=== PATIENT | female | born 1970 | race Caucasian/White ===

== ENCOUNTER 2016-07-08 12:50 | Inpatient (IN) | payer OTHER ==
[~2016-07-08] VITALS: Ht 154.9 cm; Wt 102.1 kg
[~2016-07-08 12:50] MED LIST: AMLODIPINE BESY10 M1 PO; ASPIRIN ADULT L81 M3 PO; GLU5 PO; KLONOPIN0.5 MG PO; LIPI10 PO; LOSARTAN POTASS1 TA8 PO; METFORMIN HCL1000 MG PO; TOPROL XL100 MG PO
[2016-07-08 13:56] LABS: BASOPHIL % 0.5 % (0-2); PLATELET COUNT 293 x10^3mcL (130-400); RED CELL DISTRIBUTION WIDTH 12.7 % (11.5-14.5)
[2016-07-08 13:57] LABS: UA SPECIFIC GRAVITY >=1.030 (1.005-1.035); microscopic required? YES; urine erythrocyte NEGATIVE (NEGATIVE)
[2016-07-08 14:38] LABS: T3 TOTAL 1.12 ng/mL
[2016-07-08 15:02] LABS: CALCIUM 8.9 mg/dL (8.5-10.1); CARBON DIOXIDE 24.7 mmol/L (21-32); CHLORIDE SERUM 101 mmol/L (98-107); CREATININE SERUM 0.7 mg/dL (0.6-1.0); GFR1 > 60 mL/min; GLUCOSE SERUM 280 mg/dL (74-106); POTASSIUM SERUM 3.8 mmol/L (3.5-5.1); SODIUM SERUM 136 mmol/L (136-145)
[2016-07-08 15:11] LABS: ALBUMIN 3.7 g/dL (3.4-5.0); ALKALINE PHOSPHATASE 91 U/L (46-116); ALT/SGPT 30 U/L (14-59); AST/SGOT 15 U/L (15-37); BILIRUBIN TOTAL 0.4 mg/dL (0.20-1.00); LIPASE 148 IU/L (73-393); TOTAL PROTEIN, SERUM 7.9 g/dL (6.4-8.2)
[2016-07-08 15:14] LABS: CHOLESTEROL 218 mg/dL (<200); CHOLESTEROL/HDL RATIO 6.8; HDL CHOLESTEROL 32 mg/dL (40-60); TRIGLYCERIDES 586 mg/dL (<150)
[2016-07-08 17:10] LABS: FREE T4 0.89 ng/dL (0.76-1.46); FREE THYROXINE INDEX 2.9 ug/dL (1.4-4.5); T4(THYROXINE) 9.5 ug/dL (4.7-13.3)
[2016-07-08 18:33] VITALS: BP 135/83
[2016-07-08 18:35] VITALS: Ht 154.9 cm; Wt 102.1 kg
[2016-07-08 19:46] LABS: AMPHETAMINE QUAL UR NONE DETECTED (NEG <=1000)
[2016-07-08 21:04] VITALS: BP 132/67
[2016-07-09 06:15] LABS: BASOPHIL % 0.5 % (0-2); PLATELET COUNT 254 x10^3mcL (130-400); RED CELL DISTRIBUTION WIDTH 12.9 % (11.5-14.5)
[2016-07-09 06:26] VITALS: BP 131/71
[2016-07-09 06:48] LABS: CALCIUM 8.3 mg/dL (8.5-10.1); CARBON DIOXIDE 27.1 mmol/L (21-32); CHLORIDE SERUM 102 mmol/L (98-107); CREATININE SERUM 0.5 mg/dL (0.6-1.0); GFR1 > 60 mL/min; GLUCOSE SERUM 158 mg/dL (74-106); MAGNESIUM 1.5 mg/dL (1.8-2.4); PHOSPHOROUS 3.4 mg/dL (2.5-4.9); POTASSIUM SERUM 3.4 mmol/L (3.5-5.1); SODIUM SERUM 139 mmol/L (136-145)
[2016-07-09 09:05] VITALS: BP 130/71
[2016-07-09 13:26] VITALS: BP 112/50
[2016-07-09 21:34] VITALS: BP 138/76
[2016-07-10 05:24] VITALS: BP 125/81
[2016-07-10 06:23] LABS: BASOPHIL % 0.5 % (0-2); PLATELET COUNT 263 x10^3mcL (130-400); RED CELL DISTRIBUTION WIDTH 12.9 % (11.5-14.5)
[2016-07-10 06:56] LABS: CALCIUM 8.4 mg/dL (8.5-10.1); CARBON DIOXIDE 26.5 mmol/L (21-32); CHLORIDE SERUM 102 mmol/L (98-107); CREATININE SERUM 0.5 mg/dL (0.6-1.0); GFR1 > 60 mL/min; GLUCOSE SERUM 198 mg/dL (74-106); MAGNESIUM 1.7 mg/dL (1.8-2.4); POTASSIUM SERUM 3.7 mmol/L (3.5-5.1); SODIUM SERUM 139 mmol/L (136-145)
[2016-07-10 10:36] VITALS: BP 132/76
[2016-07-10] MEDS ORDERED: MOT600 PO (17:06)
[2016-07-10] MEDS ORDERED: ROBAXIN-750750 MG PO (17:08)
[2016-07-10 17:38] VITALS: BP 132/76
[2016-07-10] MEDS ORDERED: NOR10 PO (17:51)
[2016-07-10 17:54] VITALS: BP 144/81
== END 2016-07-10 19:00 | disposition home or self-care (01) | DRG 760 ==
LOC: ED 12:50 → DU 16:28 → MU 07-09 15:31
PROVIDERS: Family Medicine; Specialist; ADMIT Family Medicine
DX: N83.202 Unspecified ovarian cyst, left side (principal); N17.0 Acute kidney failure with tubular necrosis; E78.5 Hyperlipidemia, unspecified; E11.65 Type 2 diabetes mellitus with hyperglycemia; I10 Essential (primary) hypertension; E87.6 Hypokalemia; E83.42 Hypomagnesemia; I16.0 Hypertensive urgency; E78.2 Mixed hyperlipidemia; Z88.8 Allergy status to other drugs, medicaments and biological substances; Z83.3 Family history of diabetes mellitus; Z82.3 Family history of stroke; Z90.49 Acquired absence of other specified parts of digestive tract; Z90.710 Acquired absence of both cervix and uterus
CPT/HCPCS: 72072; 80307; 82962; 83880; 84439; G0480; J1170; J1885; J2405; J2800; J3010; J3475; J7030; Q0092

== ENCOUNTER 2016-09-29 12:10 | Observation (INO) | payer OTHER ==
[~2016-09-29] VITALS: Ht 154.9 cm; Wt 102.0 kg
[~2016-09-29 12:10] MED LIST changes: +MOT600 PO; +NOR10 PO; +ROBAXIN-750750 MG PO
[2016-09-29 14:04] LABS: BASOPHIL % 0.4 % (0-2); PLATELET COUNT 284 x10^3mcL (130-400); RED CELL DISTRIBUTION WIDTH 12.3 % (11.5-14.5)
[2016-09-29 14:11] LABS: CALCIUM 9.5 mg/dL (8.5-10.1); CARBON DIOXIDE 27.1 mmol/L (21-32); CHLORIDE SERUM 96 mmol/L (98-107); CREATININE SERUM 0.6 mg/dL (0.6-1.0); GFR1 > 60 mL/min; GLUCOSE SERUM 232 mg/dL (74-106); POTASSIUM SERUM 3.6 mmol/L (3.5-5.1); SODIUM SERUM 131 mmol/L (136-145)
[2016-09-29 14:16] LABS: ALBUMIN 3.7 g/dL (3.4-5.0); ALKALINE PHOSPHATASE 96 U/L (46-116); ALT/SGPT 35 U/L (14-59); AST/SGOT 28 U/L (15-37); BILIRUBIN TOTAL 0.6 mg/dL (0.20-1.00); TOTAL PROTEIN, SERUM 8.1 g/dL (6.4-8.2)
[2016-09-29 14:26] LABS: UA SPECIFIC GRAVITY >=1.030 (1.005-1.035); microscopic required? YES; urine erythrocyte TRACE (NEGATIVE)
[2016-09-29 16:10] LABS: ERYTHROCYTE SED RATE 34 mm/hr (0-20)
[2016-09-29 18:31] VITALS: BP 139/100
[2016-09-29 18:34] LABS: T3 TOTAL 1.18 ng/mL
[2016-09-29 18:51] LABS: AMPHETAMINE QUAL UR NONE DETECTED (NEG <=1000)
[2016-09-29 18:53] LABS: FREE T4 1.19 ng/dL (0.76-1.46); FREE THYROXINE INDEX 3.6 ug/dL (1.4-4.5); T4(THYROXINE) 11.1 ug/dL (4.7-13.3)
[2016-09-29 19:10] LABS: AMYLASE 42 U/L (25-115); LACTIC DEHYDROGENASE (LDH) 180 U/L (100-190); LIPASE 99 IU/L (73-393); MAGNESIUM 1.4 mg/dL (1.8-2.4); PHOSPHOROUS 4.3 mg/dL (2.5-4.9)
[2016-09-29 19:12] LABS: CHOLESTEROL 214 mg/dL (<200); CHOLESTEROL/HDL RATIO 6.3; HDL CHOLESTEROL 34 mg/dL (40-60); TRIGLYCERIDES 576 mg/dL (<150)
[2016-09-29 21:52] VITALS: BP 122/64
[2016-09-30 06:07] VITALS: BP 109/62
[2016-09-30 07:20] LABS: BASOPHIL % 0.4 % (0-2); PLATELET COUNT 247 x10^3mcL (130-400); RED CELL DISTRIBUTION WIDTH 12.1 % (11.5-14.5)
[2016-09-30 07:28] LABS: CALCIUM 8.5 mg/dL (8.5-10.1); CARBON DIOXIDE 25.1 mmol/L (21-32); CHLORIDE SERUM 100 mmol/L (98-107); CREATININE SERUM 0.5 mg/dL (0.6-1.0); GFR1 > 60 mL/min; GLUCOSE SERUM 196 mg/dL (74-106); MAGNESIUM 1.4 mg/dL (1.8-2.4); PHOSPHOROUS 3.5 mg/dL (2.5-4.9); POTASSIUM SERUM 3.2 mmol/L (3.5-5.1); SODIUM SERUM 135 mmol/L (136-145)
[2016-09-30 09:49] VITALS: Ht 154.9 cm; Wt 102.0 kg
[2016-09-30 09:55] VITALS: BP 125/75
[2016-09-30 10:00] VITALS: BP 107/53
[2016-09-30] MEDS ORDERED: IMITREX25 MG PO (13:47)
[2016-09-30 14:00] VITALS: BP 117/60
[2016-09-30] MEDS ORDERED: METFORMIN HCL1000 MG PO (14:07)
[2016-09-30] MEDS ORDERED: TOPROL XL100 MG PO (14:08)
[2016-09-30 14:11] VITALS: BP 125/75
== END 2016-09-30 16:40 | disposition home or self-care (01) | DRG 102 ==
LOC: ED 12:10 → DU 17:30
PROVIDERS: Emergency Medicine; ADMIT Family Medicine
PROC: 7W00X1Z Osteopathic Treatment of Head using Fascial Release (ICD-10-PCS; principal; 2016-09-30)
PROC: 7W02X4Z Osteopathic Treatment of Thoracic Region using Indirect Forces (ICD-10-PCS; principal; 2016-09-30)
DX: G44.209 Tension-type headache, unspecified, not intractable (principal); N17.0 Acute kidney failure with tubular necrosis; E43 Unspecified severe protein-calorie malnutrition; D68.69 Other thrombophilia; Z68.41 Body mass index [BMI] 40.0-44.9, adult; E87.1 Hypo-osmolality and hyponatremia; I10 Essential (primary) hypertension; E11.65 Type 2 diabetes mellitus with hyperglycemia; E66.01 Morbid (severe) obesity due to excess calories; M99.00 Segmental and somatic dysfunction of head region; M99.02 Segmental and somatic dysfunction of thoracic region; M99.01 Segmental and somatic dysfunction of cervical region; Z79.84 Long term (current) use of oral hypoglycemic drugs; E83.42 Hypomagnesemia; E78.5 Hyperlipidemia, unspecified; Z66 Do not resuscitate; Z79.82 Long term (current) use of aspirin
CPT/HCPCS: 82962; 83880; 84439; G0378; G0480; J1200; J2270; J2765; J3475; J7030; J8597; Q0092

== ENCOUNTER 2017-07-18 13:18 | Emergency (ER) | payer OTHER ==
[~2017-07-18] VITALS: Ht 154.9 cm; Wt 98.9 kg
[~2017-07-18 13:18] MED LIST changes: +IMITREX25 MG PO
[2017-07-18 13:23] VITALS: Ht 154.9 cm; Wt 98.9 kg
[2017-07-18 14:31] LABS: BASOPHIL % 0.4 % (0-2); PLATELET COUNT 225 x10^3mcL (130-400); RED CELL DISTRIBUTION WIDTH 12.7 % (11.5-14.5)
[2017-07-18 14:31] LABS: UA SPECIFIC GRAVITY 1.025 (1.005-1.035); microscopic required? YES; urine erythrocyte 3+ (NEGATIVE)
[2017-07-18 14:37] LABS: CALCIUM 8.3 mg/dL (8.5-10.1); CARBON DIOXIDE 23.7 mmol/L (21-32); CHLORIDE SERUM 99 mmol/L (98-107); CREATININE SERUM 0.8 mg/dL (0.6-1.0); GFR1 > 60 mL/min; GLUCOSE SERUM 419 mg/dL (74-106); POTASSIUM SERUM 4.1 mmol/L (3.5-5.1); SODIUM SERUM 132 mmol/L (136-145)
[2017-07-18 16:16] VITALS: BP 153/91
== END 2017-07-18 16:16 | disposition home or self-care (01) ==
LOC: ED 13:18
PROVIDERS: Emergency Medicine Emergency Medical Services
DX: N39.0 Urinary tract infection, site not specified (principal); E11.65 Type 2 diabetes mellitus with hyperglycemia; E86.0 Dehydration; I10 Essential (primary) hypertension; Z88.1 Allergy status to other antibiotic agents; Z88.5 Allergy status to narcotic agent; Z88.8 Allergy status to other drugs, medicaments and biological substances
CPT/HCPCS: 82962; J1815